=== PATIENT | male | born 1990 | race Caucasian/White ===

== ENCOUNTER → 2017-03-15 18:44 | Emergency (ER) | payer SELFPAY ==
[2017-03-15 18:49] VITALS: BP 123/75
== END | disposition home or self-care (01) ==
LOC: ED 18:44
DX: S99.912A Unspecified injury of left ankle, initial encounter (principal); X58.XXXA Exposure to other specified factors, initial encounter; Y92.9 Unspecified place or not applicable; Z53.21 Procedure and treatment not carried out due to patient leaving prior to being seen by health care provider
CPT/HCPCS: 99281